=== PATIENT | female | born 1935 | race Caucasian/White ===

== ENCOUNTER 2017-07-20 05:49 | Day surgery (SDC) | payer MEDICARE ==
[~2017-07-20] VITALS: Ht 165.1 cm; Wt 72.6 kg
[2017-07-20] VITALS (8 sets, daily range): BP systolic 116–168; BP diastolic 55–76
[2017-07-20] MEDS ORDERED: AMLODIPINE BESY10 MG ORAL (06:25)
[2017-07-20] MEDS ORDERED: LISINOPRIL10 MG ORAL (06:25)
[2017-07-20] MEDS ORDERED: Dexamethasone 4mg/ml vial ONE (06:55)
[2017-07-20] MEDS ORDERED: Lidocaine 1% Plain 30 ml INJ ONE (06:56)
[2017-07-20] MEDS ORDERED: Bupivacaine 0.5% Inj 30 ml vial INJ ONE (06:56)
[2017-07-20 07:00] LABS: ANION GAP 6 mmol/L (5-15); CALCIUM 9.3 MG/DL (8.5-10.1); CARBON DIOXIDE 26 MMOL/L (21-32); CHLORIDE 108 MMOL/L (98-107); CREATININE 1.1 MG/DL (0.55-1.30); POTASSIUM 4.1 MMOL/L (3.5-5.1); SODIUM 140 MMOL/L (136-145)
[2017-07-20 07:04] LABS: BASOPHILS % (AUTO) 1.3 % (0.0-2.0); EOSINOPHILS % (AUTO) 2.5 % (0.0-3.0); LYMPHOCYTES % (AUTO) 28.3 % (20.0-45.0); MEAN CORPUSCULAR HEMOGLOBIN 31.3 PG (27.0-31.0); MEAN CORPUSCULAR VOLUME 92 FL (80-99); MEAN PLATELET VOLUME 9.9 FL (6.5-10.1); MONOCYTES % (AUTO) 6.7 % (1.0-10.0); NEUTROPHILS % (AUTO) 61.2 % (45.0-75.0); PLATELET COUNT 175 K/UL (150-450); PROTHROMBIN TIME 10.4 SEC (9.30-11.50); RED BLOOD COUNT 4.55 M/UL (4.20-5.40); RED CELL DISTRIBUTION WIDTH 11.5 % (11.6-14.8); WHITE BLOOD COUNT 4.8 K/UL (4.8-10.8)
[2017-07-20] MEDS ORDERED: DiphenhydrAMINE 50mg/ml Inj ONE (07:09)
--- NOTE | 2017-07-20 07:15 | Anethesia Preoperative Eval ---
Anesthesia Pre-op PMH/ROS General Date of Evaluation: Jul 20, 2017 Anesthesiologist: Nickolas ASA Score: ASA 2 Mallampati Score Class I : Soft palate, uvula, fauces, pillars visible Class II: Soft palate, uvula, fauces visible Class III: Soft palate, base of uvula visible Class IV: Only hard plate visible Mallampati Classification: Class II Surgeon: Parish Diagnosis: Left 3rd hammertoe Surgical Procedure: Left 3rd hammertoe correction Anesthesia History: none Family History: no anesthesia problems Allergies: Uncoded Allergies: DPT SHOT (Allergy, Severe, Anaphylaxis, 07/20/17) Medications: see eMAR Past Medical History Cardiovascular: Reports: HTN, Denies: CAD, [place], valve dz, arrhythmia, other Pulmonary: Denies: asthma, COPD, BLANCO, other Gastrointestinal/Genitourinary: Denies: GERD, CRI, ESRD, other Neurologic/Psychiatric: Denies: dementia, CVA, depression/anxiety, TIA, other Endocrine: Denies: DM, hypothyroidism, steroids, other HEENT: Reports: cataract (L), cataract (R), Denies: glaucoma, [place] (L), [place] (R), other Hematology/Immune: Denies: anemia, DVT, bleeding disorder, other Musculoskeletal/Integumentary: Reports: other - osteoporosis, Denies: OA, RA, DJD, DDD, edema PSxH Narrative: T&A Anesthesia Pre-op Phys. Exam Physician Exam Last Vital Signs Date Time Temp Pulse Resp B/P (MAP) Pulse Ox O2 Delivery O2 Flow Rate FiO2 07/20/17 06:21 97.0 62 18 168/76 99 Room Air Constitutional: NAD Cardiovascular: RRR Respiratory: CTA Airway Exam Mallampati Score: Class II MO: full ROM: full Teeth: missing Dentures: upper, lower Anesthesia Pre-op A/P Labs Hematology Test 07/20/17 06:10 White Blood Count 4.8 K/UL (4.8-10.8) Red Blood Count 4.55 M/UL (4.20-5.40) Hemoglobin 14.3 G/DL (12.0-16.0) Hematocrit 41.9 % (37.0-47.0) Mean Corpuscular Volume 92 FL (80-99) Mean Corpuscular Hemoglobin 31.3 PG (27.0-31.0) H Mean Corpuscular Hemoglobin Concent 34.0 G/DL (32.0-36.0) Red Cell Distribution Width 11.5 % (11.6-14.8) L Platelet Count 175 K/UL (150-450) Mean Platelet Volume 9.9 FL (6.5-10.1) Neutrophils (%) (Auto) 61.2 % (45.0-75.0) Lymphocytes (%) (Auto) 28.3 % (20.0-45.0) Monocytes (%) (Auto) 6.7 % (1.0-10.0) Eosinophils (%) (Auto) 2.5 % (0.0-3.0) Basophils (%) (Auto) 1.3 % (0.0-2.0) Coagulation Test 07/20/17 06:10 Prothrombin Time 10.4 SEC (9.30-11.50) Prothromb Time International Ratio 1.0 (0.9-1.1) Activated Partial Thromboplast Time 28 SEC (23-33) Chemistry Test 07/20/17 06:10 Sodium Level 140 MMOL/L (136-145) Potassium Level 4.1 MMOL/L (3.5-5.1) Chloride Level 108 MMOL/L (98-107) H Carbon Dioxide Level 26 MMOL/L (21-32) Anion Gap 6 mmol/L (5-15) Blood Urea Nitrogen 19 mg/dL (7-18) H Creatinine 1.1 MG/DL (0.55-1.30) Estimat Glomerular Filtration Rate mL/min (>60) Glucose Level 99 MG/DL (74-106) Calcium Level 9.3 MG/DL (8.5-10.1) Studies Pre-op Studies: EKG - sb Risk Assessment & Plan Assessment: ASA II Plan: MAC Status Change Before Surgery: No Pre-Antibiotics Drug: Ancef 1g Given Within 1 Hr of Incision: Yes Time Given: 07:35 ROCKY TAN M.D. Jul 20, 2017 07:15
[2017-07-20] MEDS ORDERED: NS Irrig 1000ml IRRIG ONE (07:25)
[2017-07-20] MEDS ORDERED: Lidocaine 1% MPF 10mg/ml 5ml ONE (07:30)
[2017-07-20] MEDS ORDERED: NS Irrig 1000ml ONE (07:30)
[2017-07-20] MEDS ORDERED: Sterile Water Irrig 1000ml IRRIG ONE (07:30)
[2017-07-20] MEDS ORDERED: Propofol 200mg/20ml IV ONE (07:30)
[2017-07-20] MEDS ORDERED: LR 1000ml ONE (07:30)
[2017-07-20] MEDS ORDERED: fentaNYL 100 mcg/2 mL IV ONE (07:30)
[2017-07-20] MEDS ORDERED: Midazolam 2mg/2ml Inj ONE (07:30)
[2017-07-20] MEDS ORDERED: LR 1000ml 1,000 ML IVLG SCH (07:41)
[2017-07-20] MEDS ORDERED: DiphenhydrAMINE 50mg/ml Inj IVP PRN (07:45)
--- NOTE | 2017-07-20 07:46 | Pre-Procedure Note/Attestation ---
Pre-Procedure Note/Attestation Complete Prior to Procedure Planned Procedure: left Procedure Narrative: Hammertoe correction third left digit Tenotomy and capsulotomy third left metatarsophalangeal joint Indications for Procedure Pre-Operative Diagnosis: Hammertoe deformity third left digit Contracture third left MTPJ Attestation I attest that I discussed the nature of the procedure; its benefits; risks and complications; and alternatives (and the risks and benefits of such alternatives ), prior to the procedure, with the patient (or the patient's legal customer care representative). I attest that, if there was a reasonable possibility of needing a blood transfusion, the patient (or the patient's legal customer care representative) was given the [place] [employer] standardized written summary, pursuant to the Lukas Hutchinson Blood Safety Act ([place] Health and Safety Code # 1645, as amended). I attest that I re-evaluated the patient just prior to the surgery and that there has been no change in the patient's H&P, except as documented below: SHAWNA WOODS Jul 20, 2017 07:46
--- NOTE | 2017-07-20 08:11 | Immediate Post-Op Evaluation ---
Immediate Post-Op Evalulation Immediate Post-Op Evalulation Procedure: Left 3rd hammertoe correction Date of Evaluation: Jul 20, 2017 Time of Evaluation: 08:30 IV Fluids: 450 Blood Products: 0 Estimated Blood Loss: min Urinary Output: 0 Blood Pressure Systolic: 140 Blood Pressure Diastolic: 65 Pulse Rate: 58 Respiratory Rate: 16 O2 Sat by Pulse Oximetry: 100 Temperature (Fahrenheit): 98.7 Pain Score (1-10): 0 Nausea: No Vomiting: No Complications 0 Patient Status: awake, reacts, patent, none Hydration Status: adequate Drug: Ancef 1g Given Within 1 Hr of Incision: Yes Time Given: 07:35 ROCKY TAN M.D. Jul 20, 2017 08:11
--- NOTE | 2017-07-20 08:11 | 48 Hour Post Anesthesia Eval ---
Post Anesthesia Evaluation Procedure: Left 3rd hammertoe correction Date of Evaluation: Jul 20, 2017 Airway: patent Nausea: No Vomiting: No Pain Intensity: 0 Hydration Status: adequate Cardiopulmonary Status: at baseline Mental Status/LOC: patient returned to baseline Post-Anesthesia Complications: 0 Follow-up care needed: ready to discharge ROCKY TAN M.D. Jul 20, 2017 08:11
--- NOTE | 2017-07-20 08:22 | Brief Operative Note ---
Immediate Post Operative Note Operative Note Pre-op Diagnosis: Hammertoe deformity third left digit Contracture third left MTPJ Procedure: Arthroplasty third left PIPJ Tenotomy and capsulotomy third left MTPJ Post-op Diagnosis: same as pre-op Surgeon: Parish Anesthesiologist: Kesha Anesthesia: MAC Specimen: yes Complications: none Condition: stable Fluids: 50 Estimated Blood Loss: none Drains: none Implant(s) used?: No SHAWNA WOODS Jul 20, 2017 08:22
--- NOTE | 2017-07-20 15:15 | Diagnostic Imaging Report ---
Indication: Status post foot surgery Technique: 3 views foot Comparison: None Findings: There is evidence of osteotomy of the third proximal phalanx. No acute fractures. No dislocations. The joint spaces are preserved. There are hammertoe deformities of the second through fifth digits Impression: Postsurgical changes as described. No unusual features
--- NOTE | 2017-07-20 15:45 | Pre-op HX & Phy Repo 2 SIG ---
DATE OF ADMISSION: 07/20/2017 PRESURGICAL INTERNAL MEDICINE HISTORY AND PHYSICAL REASON FOR EVALUATION: I was asked by Dr. Bryon Lugo to see this 82-year-old female, who is going for elective surgery on the left foot. The patient has a hammertoe deformity on the left foot. Please see full podiatry history and physical by Dr. Bryon Lugo. The patient was evaluated. Chart was reviewed. PAST MEDICAL HISTORY AND REVIEW OF SYSTEMS: Remarkable for hypertension, chronic constipation, and osteoarthritis. Denies history of heart attack, chest pain, or palpitation. No history of stroke or seizures. No history of diabetes. Denies history of thyroid problem. No history of respiratory problem, asthma, or bronchitis. Denies history of anemia or renal failure. No history of GI bleeding or hepatitis. No Parkinson disease or paralysis. PAST SURGICAL HISTORY: Remarkable for adenoids removed and tonsillectomy as a child, 7-year-old. FAMILY HISTORY: Father from pancreatic cancer complication and mother of old age. ALLERGIES: Allergy to DPT, shock reaction. PRESENT MEDICATIONS: Include amlodipine, lisinopril, occasional aspirin, and laxative. HABITS: Smoker in the distant past. Alcohol occasionally. No street drugs. PHYSICAL EXAMINATION: GENERAL: Alert, well-developed, well-nourished female in her 80s, in no acute distress. The patient is alert. Denied fever or weight loss. VITAL SIGNS: Blood pressure 168/76, temperature 97, pulse 62 and regular, respirations 18, and O2 saturation 99% on room air. SKIN: Dry, clear, and warm. No rashes. LYMPHATICS: Lymph nodes not enlarged. HEENT: Head normocephalic, atraumatic. Ears clear. Eyes, PERRLA. Extraocular muscles intact. No jaundice or conjunctivitis. Mouth, clear and moist. She has dentures upper and lower. NECK: Supple. No jugular vein distention. Carotid artery +2. Trachea midline. CHEST: No deformity or asymmetry. LUNGS: Clear to auscultation and percussion. No rales or rhonchi. HEART: Sinus rhythm. No ectopy. No murmur. No S3, S4. ABDOMEN: Soft, benign. Liver and spleen not enlarged. No rebound. Bowel sounds +2. EXTREMITIES: No varicose veins. No peripheral edema. Hammertoe deformity bilaterally. Full description per Dr. Bryon Lugo. NERVOUS SYSTEM: No tremor. No nystagmus. No asymmetry. LABORATORY AND DIAGNOSTIC DATA: Electrocardiogram, sinus bradycardia, 58 per minute, otherwise normal ECG. The patient did not eat or drink from last night. IMPRESSION: 1. Hammertoe deformity, left foot third digit. 2. Hypertension, uncomplicated. 3. Chronic constipation. 4. Degenerative joint disease, knee. PLAN: Hammertoe deformity correction, third digit on the left foot, per Dr. Bryon Lugo. CONCLUSION: The patient has history of hypertension. Blood pressure not completely controlled. EKG in normal limit. The patient did not eat or drink from last night. The patient's condition optimized for surgery. Thank you very much, Dr. Lugo, for privilege to participate in the presurgical care of this interesting patient. Koby Giang M.D. DR: HYACINTH JOB#: [id number] CC: DANILO
--- NOTE | 2017-07-20 16:40 | Cardiology Report ---
APPROVED REPORT EKG Measurement Heart [id number] Sinus bradycardia Otherwise normal ECG
--- NOTE | 2017-07-20 20:45 | Pre-op HX & Phy Repo 2 SIG ---
DATE OF ADMISSION: 07/20/2017 HISTORY OF PRESENT ILLNESS: This is an 82-year-old white female that is admitted today for an outpatient correction of her left third hammertoe. The patient has been complaining of pain from her toe for the past several months. She had no prior podiatric care to that toe. She did attempt modifying her shoes and she used padding over the toe without any success. The patient was consulted by me on correction of her toe and she elected to proceed with surgery. PAST MEDICAL HISTORY: Remarkable for hypertension. MEDICATIONS: Amlodipine and lisinopril. ALLERGIES: She is allergic to DPT immunization and no other medications. PHYSICAL EXAMINATION: VASCULAR: The dorsalis pedis and posterior tibial arteries are faint bilaterally. The capillary filling time is less than 5 seconds to all digits bilaterally. Homans sign is negative. Varicosities are noted in bilateral lower extremity. NEUROLOGICAL: Reflexes, Achilles and patella are equally brisk and measuring 2/4 bilaterally. Sensation, proprioception, and vibration sensation are all intact bilaterally. Babinski is negative. Clonus is absent in bilateral lower extremity. 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 They are nonreducible hammertoe deformities of digits 2 through 5 bilaterally with the worse contracture being third left digit. The toes are subluxed at the metatarsophalangeal joints second through fifth bilaterally. Range of motion of the joints at the level of the ankle, subtalar joint, and midtarsal joint are all reduced, but pain-free. Mild crepitations are noted. DERMATOLOGICAL: Examination reveals hyperkeratotic lesion at the distal aspect of the third left digit. All nails are present and healthy. No other scars or ulcerations are noted bilaterally. ASSESSMENT: 1. Hammertoe deformity, third left digit. 2. Painful corn, third left digit. PLAN: The patient is admitted today for correction of her hammertoe on the left foot. Postoperative medications were dispensed to the patient. Postoperative instructions were given. The patient elects to proceed with surgery. Bryon Lugo D.P.M. DR: KEYANA JOB#: [id number] CC:
--- NOTE | 2017-07-20 21:15 | Operative Note - Dictated ---
DATE OF OPERATION: 07/20/2017 SURGEON: Bryon Lugo D.P.M. ANESTHESIOLOGIST: Dinora Rebolledo M.D. ANESTHESIA: Local standby. PREOPERATIVE DIAGNOSES: 1. Painful corn, third left digit. 2. Painful hammertoe deformity, third left digit. 3. Contracture third left metatarsophalangeal joint. PROCEDURES PERFORMED: 1. Arthroplasty, third left proximal interphalangeal joint. 2. Tenotomy and capsulotomy, third left metatarsophalangeal joint. DESCRIPTION OF THE OPERATION: The patient was brought to the operating room and was placed on the operating room table in the supine position. IV sedation was administered by the anesthesiologist. Local anesthesia consisting of 50:50 mix of 1% Xylocaine plain and 0.5% Marcaine plain, total of 10 mL was administered to the left foot. An ankle tourniquet was applied to the left lower extremity. The foot was prepped and draped in the usual sterile manner. An Esmarch was then utilized to exsanguinate the blood and the left ankle tourniquet was inflated to 250 mmHg. Attention was then directed to the third left digit where an approximately 4 cm dorsal linear skin incision was centered over the third proximal interphalangeal joint. The incision was deepened utilizing sharp and blunt dissection with care being taken to cauterize and ligate all bleeders. At the level of the joint, a transverse tenotomy was performed. The extensor tendon was reflected proximally and the head of the proximal phalanx was exposed. The collateral ligaments were severed. Utilizing a sagittal saw, the head of the proximal phalanx was resected in total. The remaining bone was rasped smooth. The wound was copiously flushed utilizing sterile saline. At this point, the wound was dissected proximally. Utilizing a #67 blade, a stab incision was performed over the third left metatarsophalangeal joint and the extensor tendon along with the capsule was freed. The digit was brought into a rectus position. The wound was copiously flushed utilizing sterile saline. At this point, the extensor tendon was reapproximated utilizing 4-0 Vicryl at the level of the proximal interphalangeal joint utilizing simple interrupted type stitch. The skin was then reapproximated utilizing 5-0 nylon in a simple interrupted type stitch. The wound was dressed utilizing an Adaptic 4 x 4 gauze and 3 inch Asif. Left ankle tourniquet was deflated and vascular supply was noted to all digits in left foot. The patient tolerated the procedure well and left the operating room to recovery room with all vital signs stable. Bryon Lugo D.P.M. DR: Nae JOB#: [id number] CC:
== END 2017-07-20 09:55 | disposition home or self-care (01) ==
LOC: SUR 05:49
DX: M20.42 Other hammer toe(s) (acquired), left foot (principal); L84 Corns and callosities; M24.575 Contracture, left foot; I10 Essential (primary) hypertension; K59.09 Other constipation; M17.9 Osteoarthritis of knee, unspecified; M81.0 Age-related osteoporosis without current pathological fracture; Z80.8 Family history of malignant neoplasm of other organs or systems; Z87.891 Personal history of nicotine dependence
CPT/HCPCS: 28010; 36415; 73630; 80048; 85025; 85610; 85730; 93005; J0690; J1100; J1200; J2001; J2250; J2704; J3010; J3490; J7120; 94003; 94150